=== PATIENT | female | born 1995 | race Caucasian/White ===

== ENCOUNTER 2019-08-12 09:55 | Emergency (ER) | payer OTHER ==
[~2019-08-12] VITALS: Ht 162.6 cm; Wt 90.7 kg
[2019-08-12 10:29] LABS: APPEARANCE,URINE SLIGHTLY CLOUDY (CLEAR); BILIRUBIN,URINE Negative (NEGATIVE); BLOOD, URINE Negative Ery/uL (NEGATIVE); COLOR,URINE Yellow (YELLOW); KETONES,URINE Negative (NEGATIVE); LEUKOCYTE ESTERASE ,URINE Negative (NEGATIVE); NITRITE, URINE Positive (NEGATIVE); PH,URINE 8.5 (5.0-8.0); PROTEIN,URINE Negative (NEGATIVE); UGLUCOSE Negative (NEGATIVE); UROBILINOGEN,URINE 0.2 EU/dL (0.2)
--- NOTE | 2019-08-12 10:33 | NUR ---
patient came in to the er c/o "Lower abdominal pressure/discomfort Pain with urine went to [facility] given meds for ?UTI but cultures shows no Bacteria". On room air, breathing evenly and unlabored. kept comfortable, will continue to monitor accordingly.
[2019-08-12 10:34] LABS: BACTERIA,URINE Few /HPF (None Seen); SQUAMOUS EPITHELIAL CELL,UR Rare /HPF (None Seen)
[2019-08-12 10:46] VITALS: BP 135/66
--- NOTE | 2019-08-12 10:47 | NUR ---
Patient discharged to home in stable condition. Written and verbal after care instructions given. Patient verbalizes understanding of instruction.
== END 2019-08-12 10:47 | disposition home or self-care (01) ==
LOC: ER 10:01
DX: N30.90 Cystitis, unspecified without hematuria (principal)
CPT/HCPCS: 81000-TC; 84703-TC; 87086-TC